=== PATIENT | female | born 1995 | race Caucasian/White ===

== ENCOUNTER 2018-12-03 21:57 | Emergency (ER) | payer OTHER ==
[2018-12-03] MEDS: IBUPROFEN 600 MG TAB PO (23:33)
[2018-12-04 02:25] LABS: MONOTEST Positive (NEG)
== END 2018-12-04 01:20 | disposition home or self-care (01) ==
LOC: FTE 12-04 01:20
DX: J02.9 Acute pharyngitis, unspecified (principal)
CPT/HCPCS: 86308; 87880; 99283